=== PATIENT | male | born 1975 | race Caucasian/White ===

== ENCOUNTER 2017-06-22 17:25 | Emergency (ER) | payer SELFPAY, OTHER | END 2017-06-22 21:50 | disposition left against medical advice (07) | LOC: FTE 21:50 | DX: Z53.21 Procedure and treatment not carried out due to patient leaving prior to being seen by health care provider (principal) ==

== ENCOUNTER 2018-03-20 23:42 | Emergency (ER) | payer OTHER ==
[2018-03-21] MEDS: HYDROCODONE/APAP (10/325) TAB PO (00:32)
== END 2018-03-21 02:20 | disposition home or self-care (01) ==
LOC: FTE 23:42
DX: S89.91XA Unspecified injury of right lower leg, initial encounter (principal); W18.39XA Other fall on same level, initial encounter; Y92.9 Unspecified place or not applicable
CPT/HCPCS: 29505; 73562; 99283-25